=== PATIENT | female | born 1975 | race Caucasian/White ===

== ENCOUNTER 2020-04-10 12:17 | Outpatient (CLI) | payer BC, SELFPAY ==
--- NOTE | 2020-04-13 12:27 | WPDHOLTEREM ---
Holter/Event Monitor Holter/Event Monitor Date of procedure: 04/10/20 Procedure Type: 48 hour holter monitor Indications: Syncope Conclusion: 1. 48 hour holter monitor on 04/10/20. 2. Predominant rhythm is sinus rhythm. HR range 50-138 bpm; average HR 82 bpm. 3. There are 8 premature supraventricular complexes and 1 supraventricular triplet. No supraventricular tachycardia. 4. There are 7 premature ventricular complexes. There is 1 episode of ventricular tachycardia at 148 bpm lasting 7 beats. 5. No sinoatrial or atrioventricular blocks. No significant pauses greater than 2 seconds. 6. No symptoms available for correlation.
== END 2020-04-10 12:18 | disposition home or self-care (01) ==
LOC: ANHCARD 12:19
PROVIDERS: PCP Internal Medicine; Visit Provider Clinical Nurse Specialist
DX: R55 Syncope and collapse (principal); I49.3 Ventricular premature depolarization
CPT/HCPCS: 93225; 93226

== ENCOUNTER 2020-04-10 13:20 | Outpatient (CLI) | payer BC, SELFPAY ==
--- NOTE | ~2020-04-10 | US_ITS ---
EXAMINATION: US carotid duplex BI DATE: 04/10/2020 14:50 INDICATION: Syncope. TECHNIQUE: Grayscale, color Doppler, and pulsed Doppler images of the cervical carotid arteries were obtained. The degree of vessel stenosis is placed in one of the following categories: normal, <50%, 5 0-69%, >=70% but less than near-occlusion, near-occlusion, or total occlusion. Note that percent sten osis relative to normal distal artery lumen diameter is indirectly measured from velocity measurement s as described by Mumtaz, et al. Radiology 2003; 229:340-346. Notes: Normal: Peak systolic velocity <125 centimeters/sec and no plaque <50%. Peak systolic velocity <125 ( EDV <40; ICA/CCA PSV ratio <2.0; used these factors only a tandem lesions or low cardiac output or co ntralateral disease) 50-69 %: PSV 125-230 (EDV 40-100; ratio 2-4) >= 70% but less than near occlusion: PSV greater than 230 (EDV > 100; ratio> 4.0) Near Occlusion: PSV that is variable; markedly narrowed lumen Occlusion: Absent flow on color/spectral Doppler and no lumen on armando scale. COMPARISON: None. FINDINGS: RIGHT: The right common carotid artery (CCA) peak systolic velocity (PSV) is 122 cm/s. The right internal ca rotid artery (ICA) PSV is 169 cm/s. The right ICA end-diastolic velocity (EDV) is 77 cm/s. The right ICA/CCA PSV ratio is 1.4. The external carotid artery (ECA) PSV is 129 cm/s. There is antegrade flow in the right vertebral artery. LEFT: The left CCA PSV is 118 cm/s. The left ICA PSV is 103 cm/s. The left ICA EDV is 26 cm/s. The left ICA /CCA PSV ratio is 0.9. The ECA PSV is 94 cm/s. There is antegrade flow in the left vertebral artery. IMPRESSION: 1. 50-69% stenosis in the right internal carotid artery by sonographic criteria. 2. Less than 50% stenosis in the left internal carotid artery by sonographic criteria. Reviewed, dictated and finalized at location A. IMPRESSION: 1. 50-69% stenosis in the right internal carotid artery by sonographic criteria . 2. Less than 50% stenosis in the left internal carotid artery by sonographic cr iteria.
== END 2020-04-10 13:21 | disposition home or self-care (01) ==
PROVIDERS: PCP Internal Medicine; Visit Provider Clinical Nurse Specialist
DX: R55 Syncope and collapse (principal); I65.23 Occlusion and stenosis of bilateral carotid arteries
CPT/HCPCS: 93880

== ENCOUNTER 2020-04-12 14:14 | Outpatient (CLI) | payer BC, SELFPAY ==
[2020-04-12 14:44] LABS: Basophils Percent Auto 0.2 % (0.2-1.2); Eosinophils Absolute Auto 0.2 K/mm3 (0-0.3); Eosinophils Percent Auto 2.6 % (0-4.4); Hematocrit 39.8 % (37.0-47.0); Hemoglobin 13.2 g/dL (12.0-15.0); Immature Granulocyte Absolute 0.02 K/mm3 (0.00-0.031); Immature Granulocyte Percent A 0.2 % (0-0.5); Lymphocytes Absolute Auto 2.48 K/mm3 (0.9-3.2); Lymphocytes Percent Auto 28.4 % (18.3-44.2); Mean Corpuscular HGB Conc 33.2 g/dl (32-36); Mean Corpuscular Hemoglobin 29.3 pg (26-34); Mean Corpuscular Volume 88.2 fl (80-100); Mean Platelet Volume 8.8 fl (7.4-10.4); Monocytes Absolute Auto 0.4 K/mm3 (0.1-0.6); Neutrophils Absolute Auto 5.6 K/mm3 (1.3-6.7); Neutrophils Percent Auto 63.6 % (45.5-73.1); Platelet Count Result 326 k/mm3 (150-375); Red Blood Count 4.51 M/mm3 (4.2-5.4); Red Cell Distribution Width 13.1 % (11.5-14.5); White Blood Count 8.7 K/mm3 (4.5-10.0)
[2020-04-12 14:57] LABS: Alanine Aminotransferase 17 U/L (4-35); Albumin Level 4.3 g/dL (3.5-5.1); Alkaline Phosphatase 79 U/L (38-126); Anion Gap 8 mmol/L (8-16); Aspartate Amino Transferase 22 U/L (14-36); Blood Urea Nitrogen 8 mg/dL (7-17); Calcium 9.8 mg/dL (8.4-10.2); Carbon Dioxide 27 mmol/L (22-30); Chloride 104 mmol/L (98-107); Cholesterol 215 mg/dL (0-200); Estimated Glomerular Filt Rate > 60; Glucose 93 mg/dL (65-105); HDL Direct 49 mg/dL; Potassium 3.9 mmol/L (3.4-5.0); Sodium 139 mmol/L (137-145); Triglycerides 253 mg/dL (<150)
[2020-04-12 15:08] LABS: LDL Cholesterol Direct 122 mg/dL
[2020-04-12 15:16] LABS: Iron 93 ug/dL (37-170)
[2020-04-12 15:25] LABS: Percent Iron Saturation 25 % (20-50)
[2020-04-12 16:00] LABS: Free T4 Free Thyroxine 0.81 ng/mL (0.78-2.19)
[2020-04-16 07:14] LABS: FSH 24.7 mIU/mL (***); LH 18.5 mIU/mL (***)
== END 2020-04-12 14:15 | disposition home or self-care (01) ==
PROVIDERS: PCP Internal Medicine; Referring Provider Obstetrics & Gynecology; Visit Provider Clinical Nurse Specialist
DX: D64.9 Anemia, unspecified (principal); I10 Essential (primary) hypertension; R55 Syncope and collapse; Z78.0 Asymptomatic menopausal state
CPT/HCPCS: 36415; 80053; 80061; 82728; 83001; 83002; 83540; 83550; 84439; 84443; 85025

== ENCOUNTER 2020-04-19 07:32 | Outpatient (CLI) | payer BC, SELFPAY ==
--- NOTE | ~2020-04-19 | CT_ITS ---
EXAMINATION: CTA neck DATE: 04/19/2020 08:09 INDICATION: Right carotid artery stenosis TECHNIQUE: Computed tomographic angiography (CTA) of the neck was performed with 100 mL Omnipaque-350 intravenous contrast. Multiplanar reconstructions and maximum intensity projection 3D-reconstruction s were created by the technologist on a separate workstation. The dose-length product was 553 mGy-cm. COMPARISON: None. FINDINGS: There is minimal plaque with 0% stenosis of the right carotid bulb relative to normal distal artery l umen diameter (NASCET criteria). The carotid artery distal to the bulb is tortuous which is not appre ciated on the ultrasound images at the site of the elevated velocity suggesting that the velocity is artifactually increased due to incorrect angle correction. There is minimal plaque with 0% stenosis o f the left carotid bulb relative to normal distal artery lumen diameter. Cervical soft tissues are un remarkable. Mastoid air cells, middle ear cavities and visualized portions of the paranasal sinuses a nd airway are clear. Tiny calcified nodule at the left apex consistent with old granulomatous disease . Mild upper thoracic levocurvature. Mild thoracic spondylosis. IMPRESSION: 1. Minimal with 0% stenosis of the left and right carotid bulbs relative to normal distal artery lume n diameter (NASCET criteria). Previously suspected stenosis likely resulting from incorrect angle cor rection due to tortuosity of the right internal carotid artery which is now clearly depicted on the u ltrasound images and resulting in artifactually elevated peak systolic velocities. Reviewed, dictated and finalized at location A. IMPRESSION: 1. Minimal with 0% stenosis of the left and right carotid bulbs relative to nor mal distal artery lumen diameter (NASCET criteria). Previously suspected stenos is likely resulting from incorrect angle correction due to tortuosity of the ri ght internal carotid artery which is now clearly depicted on the ultrasound meredith ges and resulting in artifactually elevated peak systolic velocities.
== END 2020-04-19 07:33 | disposition home or self-care (01) ==
PROVIDERS: PCP Internal Medicine; Visit Provider Clinical Nurse Specialist
DX: I65.29 Occlusion and stenosis of unspecified carotid artery (principal)
CPT/HCPCS: 70498; Q9967

== ENCOUNTER 2020-04-25 09:27 | Outpatient (CLI) | payer BC, SELFPAY ==
--- NOTE | 2020-04-25 09:44 | EST_ITS ---
Patient Info Name: Leila Wen Age: 44 years : 1975 Gender: Female Ht: 68 in Wt: 280 lbs BSA: 2.53 m2 HR: 67 bpm Exam Date: 04/25/2020 10:21 AM Exam Location: [facility] Pulmonary Patient Status: Outpatient Admit Date: 04/25/2020 Staff Ordering Physician: Sarah Martinez Member Services Representative: Ab Dumas RDCS, RT Attending Provider: Sarah Martinez Referring Physician: Michelle SANTOS; Exercise Technologist: Ab Dumas RDCS, RT Exercise Physician: Raphael Fraser DO Exam Type: CA stress echo Study Info Indications R06.00 - Dyspnea, unspecified Treadmill exercise stress echocardiogram is performed. Summary 1. 1. Negative Arias exercise stress test for ischemic ST changes by ECG criteria. 2. 2. Reduced functional capacity, achieving 7 METs of workload. She was limited by hypertensive response to exercise. 3. 3. Hypertensive response to exercise. 4. 4. Appropriate HR response to exercise. 5. 5. Appropriate HR recovery at 1 minute post exercise. 6. 6. Negative stress echocardiogram for ischemia by wall motion abnormality. 7. 7. Patient informed of the above results. Stress Echo Findings Left Ventricle Appropriate increase in LV endocardial thickening with systole. Appropriate augmentation of contractility with systole. No wall motion abnormality. Left Ventricle Normal LV systolic function, no wall motion abnormality. Protocol: Arias Stress ECG Details Stage: REST Duration (min): 0 min : 22 sec Speed (mph): 0.0 Grade (%): 0 HR (bpm): 79 SBP (mmHg): --- DBP (mmHg): --- METS: --- Stage: REST Duration (min): 14 min : 56 sec Speed (mph): 0.0 Grade (%): 0 HR (bpm): 77 SBP (mmHg): 155 DBP (mmHg): 93 METS: --- Stage: STAGE 1 Duration (min): 1 min : 0 sec Speed (mph): 1.7 Grade (%): 10 HR (bpm): 113 SBP (mmHg): 155 DBP (mmHg): 93 METS: --- Stage: STAGE 1 Duration (min): 2 min : 0 sec Speed (mph): 1.7 Grade (%): 10 HR (bpm): 119 SBP (mmHg): 155 DBP (mmHg): 93 METS: --- Stage: STAGE 1 Duration (min): 3 min : 0 sec Speed (mph): 1.7 Grade (%): 10 HR (bpm): 125 SBP (mmHg): 241 DBP (mmHg): 55 METS: --- Stage: STAGE 2 Duration (min): 1 min : 0 sec Speed (mph): 2.5 Grade (%): 12 HR (bpm): 144 SBP (mmHg): 241 DBP (mmHg): 55 METS: --- Stage: STAGE 2 Duration (min): 2 min : 0 sec Speed (mph): 0.0 Grade (%): 0 HR (bpm): 156 SBP (mmHg): 242 DBP (mmHg): 63 METS: --- Stage: STAGE 2 Duration (min): 2 min : 1 sec Speed (mph): 0.0 Grade (%): 0 HR (bpm): 156 SBP (mmHg): 242 DBP (mmHg): 63 METS: --- Stage: RECOVERY Duration (min): 0 min : 58 sec Speed (mph): 0.0 Grade (%): 0 HR (bpm): 132 SBP (mmHg): 242 DBP (mmHg): 63 METS: --- Stage: RECOVERY Duration (min): 1 min : 58 sec Speed (mph): 0.0 Grade (%): 0 HR (bpm): 115 SBP (mmHg): 242 DBP (mmHg): 63 METS:
== END 2020-04-25 09:28 | disposition home or self-care (01) ==
LOC: ANHCARD 09:28
PROVIDERS: PCP Internal Medicine; Visit Provider Clinical Nurse Specialist
DX: R55 Syncope and collapse (principal)
CPT/HCPCS: 93351

== ENCOUNTER 2020-05-07 13:08 | Outpatient (CLI) | payer BC, SELFPAY ==
--- NOTE | 2020-05-07 13:17 | ECHO_ITS ---
Patient Info Name: Leila Wen Age: 44 years : 1975 Gender: Female Ht: 68 in Wt: 280 lbs BSA: 2.53 m2 HR: 73 bpm BP: 164 / 112 mmHg Technical Quality: Good Exam Date: 05/07/2020 1:26 PM Exam Location: [facility] Patient Status: Outpatient Admit Date: 05/07/2020 Staff Ordering Physician: Raphael Fraser DO Welding Process Specialist: Roxana Ayala RDCS Attending Provider: Raphael Fraser DO Referring Physician: Evelio UMAÑA; Exam Type: CA echo doppler color flow Study Info Indications R55 - Syncope and collapse Complete two-dimensional, color flow and Doppler transthoracic echocardiogram is performed. Summary 1. Complete two-dimensional, color flow and Doppler transthoracic echocardiogram is performed. 2. Left ventricular chamber dimension is normal. 3. Left ventricular systolic function is normal, estimated at 60-65%. 4. The left ventricular diastolic function is abnormal. 5. E/e' 10 is mildly elevated. 6. Global longitudinal strain is mildly abnormal at -16.1%. 7. Left atrial chamber dimension is mildly enlarged. 8. No pulmonary hypertension, estimated pulmonary arterial systolic pressure is 23 mmHg. 9. There is trace pulmonic regurgitation. Left Ventricle E/e' 10 is mildly elevated. Global longitudinal strain is mildly abnormal at -16.1%. Left ventricular chamber dimension is normal. Left ventricular systolic function is normal, estimated at 60-65%. The left ventricular diastolic function is abnormal. Right Ventricle Right ventricular chamber dimension is normal. Right ventricular systolic function is normal. Left Atria Left atrial chamber dimension is mildly enlarged. Right Atria Right atrial chamber dimension is normal. Aortic Valve The aortic valve is trileaflet. There is no aortic valve stenosis. There is no aortic valve regurgitation. Pulmonic Valve There is trace pulmonic regurgitation. Mitral Valve There is no mitral valve stenosis. There is no mitral valve regurgitation. Tricuspid Valve There is no tricuspid valve regurgitation. No pulmonary hypertension, estimated pulmonary arterial systolic pressure is 23 mmHg. Pericardium/Pleural There is no pericardial effusion. Inferior Vena Cava Normal inferior vena cava with >50% collapse upon inspiration consistent with normal right atrial pressure, 5 mmHg. Aorta The aortic root size at the sinus of Valsalva is normal. Left Ventricular Outflow Tract Name Value Normal LVOT 2D LVOT Diameter 2.0 cm LVOT Doppler LVOT Peak Gradient 4 mmHg LVOT Mean Gradient 2 mmHg LVOT VTI 20 cm LVOT VTI/AV VTI Ratio 0.7 LVOT Stroke Volume 60 ml LVOT CO 4.5 l/min LVOT CI 1.8 l/min/m2 Pulmonic Valve Name Value Normal RVOT Doppler
== END 2020-05-07 13:09 | disposition home or self-care (01) ==
PROVIDERS: PCP Internal Medicine; Visit Provider Internal Medicine Cardiovascular Disease
DX: R55 Syncope and collapse (principal)
CPT/HCPCS: 93306

== ENCOUNTER 2020-05-14 07:16 | Outpatient (CLI) | payer BC, SELFPAY ==
--- NOTE | 2020-06-04 07:21 | WPDHOMESLEEP ---
Sleep Study - Home Unattended Date of Study: 05/14/20 Ordering Provider: Wild Walker DO Interpreting Physician: Allison Morrison MD Home Sleep Study Type: Apnea Link Air Height: 1.73 m Weight: 127.006 kg Body Mass Index: 42.5 [place]: 11 Reason for Sleep Study History of ELVIN, now with syncopal episodes Sleep History Leila Wen is a 44 yo female with a history of obstructive sleep apnea syndrome. She has not worn CPAP for while. She was admitted at [facility] in January with syncope after hitting her head and losing consciousness. She complains of waking up frequently during the night. She has difficulty falling asleep. She is not refreshed in the morning. She used CPAP in the past but does not have a device. She constantly snores loudly enough so others complain about it, rarely awakens at night with heartburn, belching or coughing, never awakens at night feeling short of breath. She occasionally has trouble sleeping with a cold. She does not gasp for breath during night. She frequently has breathing problems at night reported to her by others. She occasionally sweats excessively at night. She does not notice her heart pounding or beating irregularly at night. She occasionally falls asleep during the day, never involuntarily or while driving. She denies loss of muscle tone with strong emotion. She occasionally has daytime difficulties due to excessive sleepiness, works as an Digital Account Coordinator. She does not have the feeling of paralysis on waking or falling asleep and does not have vivid dreamlike scenes upon awakening or falling asleep. She has is never afraid to go to sleep. She rarely has nightmares rarely remembers her dreams. She frequently has racing thoughts, feelings of sadness depression and anxiety. She rarely has muscular tension. She rarely notices parts of her body jerking. She occasionally kicks at night. She does not have crawling and aching feelings in her legs and does not have leg pain at night. She occasionally has morning jaw pain. He frequently grinds her teeth during sleep. She is not bothered by pain during the day or awakened with pain at night. She occasionally wakes up feeling stiff in the morning, with sore or aching muscles, occasionally wakes up with pain in the neck and spine. She has fatigue, memory probelms, concentration difficulties and depression. Normal bedtime is 10:00 p.m. falling asleep within 30 minutes waking several times during night. She stays awake for 10-15 minutes. During that time she gets a drink of water, repositioned and lips or pill over. She wakes up at 6:30 a.m. in the morning. She does not nap during the day. A short nap is not refreshing. She is drowsy in the morning for 3 hours or longer. She feels better in the morning compared to other times of day. HABITS: Previously smoked tobacco, quit 2 months ago. Caffeine: coffee in the morning, tea in the afternoon. Alcohol: a few on the weekends. Occasional marijuana. [facility] Past Medical History Medical History Acid reflux Anemia Anxiety Depression Herniated disc Hypertension Iron deficiency anemia Migraine headache Obstructive sleep apnea (~05/2020) Syncope Tobacco use Surgical History Surgical History H/O section 2002 H/O gastric bypass 2008 H/O tubal ligation 2004 History of dilation and curettage x 2 History of endometrial ablation History of hysterectomy Family History Family History Father Pancreatic cancer Mother Hypertension Dementia Sibling MVA (motor vehicle accident) Grandparent Hypertension Social History Social History Smoking status: Former smoker Alcohol intake: current Drinks per week: 2 Substance use: current Substance use type: marijuana Medications Home Medications M
[2020-06-04 08:01] VITALS: BMI 42.5
== END 2020-05-14 07:17 | disposition home or self-care (01) ==
LOC: ANHCSM 07:28
PROVIDERS: PCP Internal Medicine; Visit Provider Internal Medicine
DX: G47.33 Obstructive sleep apnea (adult) (pediatric) (principal); I10 Essential (primary) hypertension; D50.9 Iron deficiency anemia, unspecified; E66.01 Morbid (severe) obesity due to excess calories; K21.9 Gastro-esophageal reflux disease without esophagitis; G43.909 Migraine, unspecified, not intractable, without status migrainosus; F32.9 Major depressive disorder, single episode, unspecified; F17.200 Nicotine dependence, unspecified, uncomplicated; Z98.84 Bariatric surgery status
CPT/HCPCS: 95806

== ENCOUNTER 2022-02-10 08:21 | Outpatient (CLI) | payer BC, SELFPAY ==
--- NOTE | ~2022-02-10 | CT_ITS ---
EXAMINATION: CT abdomen pelvis wo/w con DATE: 02/10/2022 09:00 INDICATION: Incisional hernia TECHNIQUE: Computed tomography (CT) of the abdomen and pelvis was performed without and subsequently with 100 CC Omnipaque 350 intravenous contrast. Automated exposure control and iterative reconstructi on technique were employed. Exam dose: 2034.77 mGy-cm total exam DLP. COMPARISON: 04/25/2019 CT abdomen pelvis FINDINGS: The lung bases are clear. Normal heart size. No pericardial or pleural effusion Small sliding hiatal hernia. Postoperative change from gastric bypass surgery. Status post cholecystectomy. No hepatic, splenic, pancreatic or adrenal space-occupying mass lesion. There is an exophytic 1.9 x 2.3 cm cyst of the lower pole of the right kidney. The urinary bladder is unremarkable. Status post hysterectomy. Normal caliber of the abdominal aorta. No intraperitoneal or retroperitoneal or pelvic mass lesion or adenopathy or ascites. Pinpoint nonobstructing upper pole right renal calculus. 1.8 x 4 mm lower pole nonobstructing left renal calculus. Normal appendix. No bowel obstruction, bowel wall thickening, pneumatosis or intraperitoneal free air . There are 2 contiguous ventral upper abdominal wall hernias near midline, the one on the right measur ing up to 3.5 cm transverse dimension, with small mouth, the one on the left measuring 8.6 cm transve rse dimension, with up to 4.7 cm mouth. This contains fat and the anterior wall of the mid transverse colon. No strangulation or obstruction of the bowel. Small fat-containing umbilical hernia. Bilateral L5 pars interarticularis defects with associated grade 2 anterolisthesis at L5-S1. There is severe degenerative disc disease at L5-S1. No suspicious osteolytic or osteoblastic lesions are noted. IMPRESSION: 2 contiguous upper ventral abdominal wall hernias containing fat, the larger containing the anterior wall of the mid transverse colon, without strangulation or obstruction Status post gastric bypass surgery Status post cholecystectomy Status post hysterectomy Normal appendix 19 x 23 mm lower pole right renal cyst Bilateral L5 pars interarticularis defects with grade 2 anterolisthesis and severe degenerative disea se at L5-S1 Reviewed, dictated and finalized at Location [facility]. Reviewed, dictated and finalized at location A. IMPRESSION: 2 contiguous upper ventral abdominal wall hernias containing fat, the larger containing the anterior wall of the mid transverse colon, without st rangulation or obstruction Status post gastric bypass surgery Status post cholecystectomy Status post hysterectomy Normal appendix 19 x 23 mm lower pole right renal cyst Bilateral L5 pars interarticularis defects with grade 2 anterolisthesis and sev ere degenerative disease at L5-S1
[2022-02-10 08:45] LABS: Estimated Glomerular Filt Rate > 60
== END 2022-02-10 08:22 ==
LOC: MICIMG 08:23
PROVIDERS: PCP Internal Medicine; Visit Provider Surgery
DX: K43.2 Incisional hernia without obstruction or gangrene (principal); Z98.84 Bariatric surgery status; Z90.49 Acquired absence of other specified parts of digestive tract; Z90.710 Acquired absence of both cervix and uterus; N28.1 Cyst of kidney, acquired; M43.16 Spondylolisthesis, lumbar region; M51.37 Other intervertebral disc degeneration, lumbosacral region; M51.86 Other intervertebral disc disorders, lumbar region
CPT/HCPCS: 74178; Q9967

== ENCOUNTER 2024-02-02 15:33 | Outpatient (CLI) | payer BC, SELFPAY ==
--- NOTE | ~2024-02-02 | MM_ITS ---
EXAMINATION: MM screening marcio BI w robert HISTORY: Screening mammogram TECHNIQUE: Craniocaudal and mediolateral oblique 3-D tomosynthesis images were obtained and synthetic 2-D images were generated. CAD analysis was submitted and interpreted. COMPARISON: No prior mammogram is available for comparison at this institution. BREAST PARENCHYMAL COMPOSITION:Not Dense. The breasts are almost entirely fatty FINDINGS: No suspicious mass, calcification, or architectural distortion are identified in either lanre ast to suggest malignancy. There has been no suspicious interval change. IMPRESSION: No mammographic evidence of malignancy. Recommend routine screening mammography in one year. BI-RADS Category 1: Negative Reviewed, dictated and finalized at location .
== END 2024-02-02 15:34 ==
LOC: MICIMG 15:34
PROVIDERS: PCP Internal Medicine; Visit Provider Internal Medicine
DX: Z12.31 Encounter for screening mammogram for malignant neoplasm of breast (principal)
CPT/HCPCS: 77063; 77067